=== PATIENT | male | born 1955 | race Caucasian/White ===

== ENCOUNTER 2022-10-31 09:09 | Outpatient (CLI) | payer MEDICARE, BC, SELFPAY ==
[2022-10-31 17:45] LABS: Chloride* 101 mmol/L (96-114); Sodium* 135 mmol/L (135-149)
[2022-10-31 17:46] LABS: Potassium* 4.5 mmol/L (3.6-5.1)
[2022-10-31 17:48] LABS: Creatinine* 1.3 mg/dL (0.5-1.5); Estimated Glomerular Filt Rate 60 ml/min
[2022-10-31 17:49] LABS: Blood Urea Nitrogen* 24 mg/dL (7-30); Calcium* 9.6 mg/dL (8.4-10.6); Carbon Dioxide* 28 mmol/L (20-32); Glucose* 123 mg/dL (60-115)
== END 2022-10-31 09:10 | disposition home or self-care (01) ==
LOC: LONREF 09:13
PROVIDERS: PCP Family Medicine; Visit Provider Family Medicine
DX: I10 Essential (primary) hypertension (principal)
CPT/HCPCS: 80048

== ENCOUNTER 2023-03-18 08:15 | Outpatient (CLI) | payer MEDICARE, BC, SELFPAY | END 2023-03-18 08:16 | disposition home or self-care (01) | LOC: NFLDREF 14:18 | PROVIDERS: PCP Family Medicine; Referring Provider Family Medicine; Visit Provider Family Medicine | DX: E78.5 Hyperlipidemia, unspecified (principal); E13.9 Other specified diabetes mellitus without complications | CPT/HCPCS: 80061 ==

== ENCOUNTER 2023-11-04 13:53 | Outpatient (CLI) | payer MEDICARE, BC, SELFPAY | END 2023-11-04 13:54 | disposition home or self-care (01) | PROVIDERS: PCP Family Medicine; Visit Provider Family Medicine | DX: Z12.5 Encounter for screening for malignant neoplasm of prostate (principal); E13.9 Other specified diabetes mellitus without complications; I10 Essential (primary) hypertension; Z79.899 Other long term (current) drug therapy; Z13.21 Encounter for screening for nutritional disorder | CPT/HCPCS: 80048; 82607; G0103 ==

== ENCOUNTER 2024-03-25 11:15 | Outpatient (CLI) | payer MEDICARE, BC, SELFPAY | END 2024-03-25 11:16 | disposition home or self-care (01) | LOC: LKVREF 11:17 | PROVIDERS: PCP Family Medicine; Visit Provider Family Medicine | DX: Z01.818 Encounter for other preprocedural examination (principal) | CPT/HCPCS: 80048 ==

== ENCOUNTER 2024-11-18 09:25 | Outpatient (CLI) | payer MEDICARE, BC, SELFPAY | END 2024-11-18 09:26 | disposition home or self-care (01) | PROVIDERS: PCP Family Medicine; Visit Provider Family Medicine | DX: I10 Essential (primary) hypertension (principal); E78.5 Hyperlipidemia, unspecified | CPT/HCPCS: 80048; 80061 ==

== ENCOUNTER 2025-05-11 14:32 | Outpatient (CLI) | payer MEDICARE, BC, SELFPAY | END 2025-05-11 14:33 | disposition home or self-care (01) | LOC: LKVREF 14:34 | PROVIDERS: PCP Family Medicine; Visit Provider Family Medicine | DX: Z12.5 Encounter for screening for malignant neoplasm of prostate (principal) | CPT/HCPCS: G0103 ==